=== PATIENT | female | born 1965 | race Caucasian/White ===

== ENCOUNTER → 2016-09-12 | Outpatient (CLI) | payer BC ==
[~2016-09-12] MED LIST: ASCO500T3 PO; ATEN50TA8 PO; BUTA1TAB PO; EST1 PO; MULTTAB58 PO; OMEG10007 PO; OMEP20CA59 PO; SIMV20TA2 PO; VITAMIN D PO
== END | disposition home or self-care (01) ==
LOC: C.LABSPEC 17:11
PROVIDERS: ATTEND Nurse Practitioner Family
DX: R30.0 Dysuria (principal); R35.0 Frequency of micturition

== ENCOUNTER → 2016-10-30 | Outpatient (CLI) | payer BC ==
[~2016-10-30] MED LIST changes: +BUTA50TA6 PO; +CHOLCAP5 PO; +FLUT50SP45; +NITR1CAP32 PO; +PHEN-876 PO; +PRVIN525X NEB; +VNTHFA/IN INH
--- NOTE | 2016-10-30 16:04 | MAMMOGRAPHY REPORT ---
BILATERAL DIGITAL SCREENING MAMMOGRAM TOMOSYNTHESIS WITH CAD: 10/30/2016 CLINICAL HISTORY: Routine screening. Patient has no complaints. TECHNIQUE: Breast tomosynthesis in addition to standard 2D mammography was performed. Current study was also evaluated with a Computer Aided Detection (CAD) system. COMPARISON: Comparison is made to exams dated: 10/27/2015 mammogram, 10/21/2014 mammogram, 10/16/2013 m ammogram, 10/10/2012 mammogram, 10/05/2011 mammogram, and 10/02/2010 mammogram - [facility]. BREAST COMPOSITION: There are scattered areas of fibroglandular density in both breasts. FINDINGS: The parenchymal pattern is unchanged. No developing mass, architectural distortion or clu ster of suspicious microcalcifications is seen in either breast. IMPRESSION: ACR BI-RADS CATEGORY 2: BENIGN There is no mammographic evidence of malignancy. A 1 year screening mammogram is recommended. The p atient will receive written notification of the results. Approximately 10% of breast cancers are not detected with mammography. A negative mammographic repor t should not delay biopsy if a clinically suggestive mass is present. Cat Sunshine M.D. ay/:10/30/2016 14:39:20 Admin Prog Coord: No REDD(Shilpi)(Gonzalo), [facility] letter sent: Normal 1/2 BI-RADS Code: ACR BI-RADS Category 2: Benign
== END | disposition home or self-care (01) ==
LOC: C.MAMM 08:10
PROVIDERS: ATTEND Obstetrics & Gynecology
DX: Z12.31 Encounter for screening mammogram for malignant neoplasm of breast (principal)

== ENCOUNTER → 2017-06-04 | Outpatient (CLI) | payer BC ==
[~2017-06-04] MED LIST changes: -BUTA1TAB PO; -VITAMIN D PO
--- NOTE | 2017-06-04 09:51 | DIAGNOSTIC IMAGING REPORT ---
RETROPERITONEAL COMPLETE HISTORY: 51 years-old Female URINARY SYMPTOM OR SIGN; UTI acute urinary tract infection. History of 6 mm right-sided renal angiomyolipoma COMPARISON: Renal ultrasound 04/17/2013 TECHNIQUE: Multiple real-time sonography images of the kidneys and urinary bladder were obtained assessing grayscale appearance and color flow FINDINGS: Increased echogenicity of the liver suggests fatty infiltration. The right kidney measures 10.3 x 4.7 x 5.1 cm. Echogenic lesion of the lower pole left kidney laterally is again seen measuring up to 0.7 x 0.5 x 0.4 cm which appears unchanged from comparison considering difference in measurement technique suggesting angiomyolipoma. No right-sided renal calculi or hydronephrosis. Left kidney measures 11.7 x 5.5 x 5.3 cm and is unremarkable without renal calculi, hydronephrosis or focal mass. Mild fullness of the renal pelvis and the left is likely physiologic. Bilateral ureteral jets documented. Urinary bladder appears unremarkable. IMPRESSION: 1. No renal calculi or hydronephrosis identified. 2. 7 mm echogenic cortical lesion of the right kidney appears unchanged from comparison suggesting angiomyolipoma. 3. Unremarkable sonographic appearance of the urinary bladder. 4. Fatty infiltration of the liver. The above report was generated using voice recognition software. It may contain grammatical, syntax or spelling errors. Electronically signed by: Mitch Chaing M.D. 06/04/2017 9:50 AM Dictated Date/Time: 06/04/2017 9:47 AM
== END | disposition home or self-care (01) ==
LOC: C.ULTR 08:27
PROVIDERS: ATTEND Urology
DX: N39.0 Urinary tract infection, site not specified (principal); R39.9 Unspecified symptoms and signs involving the genitourinary system

== ENCOUNTER → 2017-06-07 | Day surgery (SDC) | payer BC ==
[2017-05-30 14:23] VITALS: BMI 32.0
[2017-05-30 14:27] VITALS: BMI 32.0
--- NOTE | 2017-05-30 15:02 | PAT Medication Instructions ---
Service Date May 30, 2017. Current Home Medication List Albuterol Hfa (Ventolin Hfa), 2-4 PUFFS INH Q6H PRN for SOB/Wheezing Albuterol Sulf (Albuterol Sulfate), 1 DOSE NEB Q4 PRN for SOB/Wheezing Ascorbic Acid (Vitamin C), 1 TAB PO QPM Atenolol (Tenormin), 50 MG PO QPM Butalbital-Acetaminophen (Butalbital/Acetaminophen), 1-2 TABS PO Q4 PRN for Headache Cholecalciferol (Vitamin D3), 1 CAP PO QPM Estradiol (Estradiol), 1 TAB PO QPM Fish Oil ([place]-3), 2 CAP PO QPM Fluticasone Propionate (Nasal) (Allergy Nasal [place] 24 Ho), 2 SPRAYS NA QPM Multiple Vitamin (Multivitamin), 1 TAB PO QPM Nitrofurantoin Macrocrystals (Macrodantin), 1 CAP PO BID PRN for Bladder pain Omeprazole (Prilosec), 20 MG PO HS Phenazopyridine HCl (Pyridium), 200 MG PO TID PRN for Bladder pain Simvastatin (Zocor), 20 MG PO QPM Medication Instructions For Your Scheduled Surgery - Instructions per surgeon: Estradiol (Estradiol), 1 TAB PO QPM - Hold the following medications as of 05/31/17: Fish Oil ([place]-3), 2 CAP PO QPM - Hold the following medications the morning of surgery: Phenazopyridine HCl (Pyridium), 200 MG PO TID PRN for Bladder pain Nitrofurantoin Macrocrystals (Macrodantin), 1 CAP PO BID PRN for Bladder pain - Take the following medications the morning of surgery with a sip of water OTHERWISE NOTHING TO EAT OR DRINK AFTER MIDNIGHT: Albuterol Hfa (Ventolin Hfa), 2-4 PUFFS INH Q6H PRN for SOB/Wheezing (use if needed; BRING TO HOSPITAL) Albuterol Sulf (Albuterol Sulfate), 1 DOSE NEB Q4 PRN for SOB/Wheezing Butalbital-Acetaminophen (Butalbital/Acetaminophen), 1-2 TABS PO Q4 PRN for Headache - Take the following medications as scheduled the night before surgery: Albuterol Hfa (Ventolin Hfa), 2-4 PUFFS INH Q6H PRN for SOB/Wheezing Albuterol Sulf (Albuterol Sulfate), 1 DOSE NEB Q4 PRN for SOB/Wheezing Ascorbic Acid (Vitamin C), 1 TAB PO QPM Atenolol (Tenormin), 50 MG PO QPM Cholecalciferol (Vitamin D3), 1 CAP PO QPM Multiple Vitamin (Multivitamin), 1 TAB PO QPM Omeprazole (Prilosec), 20 MG PO HS Simvastatin (Zocor), 20 MG PO QPM Butalbital-Acetaminophen (Butalbital/Acetaminophen), 1-2 TABS PO Q4 PRN for Headache Phenazopyridine HCl (Pyridium), 200 MG PO TID PRN for Bladder pain Fluticasone Propionate (Nasal) (Allergy Nasal [place] 24 Ho), 2 SPRAYS NA QPM Nitrofurantoin Macrocrystals (Macrodantin), 1 CAP PO BID PRN for Bladder pain If you have any questions please call us at [phone] or [phone] or [phone]
[~2017-06-07] VITALS: Ht 162.6 cm; Wt 86.1 kg
[~2017-06-07] MED LIST changes: +ACET325T96 PO; +ATROPINE SULFATE 0.1 MG/ML 5ML SYR IV PRN; +CHECK SCOPOLAMINE PATCH PLACEMENT SCH; +DEXAMETHASONE SOD INJ 4 MG/ML VIAL ONE; +EpHEDrine SULFATE INJ 50 MG/ML AMP IV PRN; +FENTANYL CITRATE INJ 50 MCG/1 ML 2 ML VIAL IV PRN; +FENTANYL CITRATE INJ 50 MCG/1 ML 2 ML VIAL ONE; +FLUMAZENIL 0.1 MG/1 ML 10 ML VIAL IV PRN; +IBUP-103 PO; +IBUPROFEN 600 MG TAB PO PRN; +KETOROLAC TROMETHAMINE 30 MG/ML VIAL IV. PRN; +LABETALOL HCL IV 5 MG/ML 20ML IV PRN; +LACTATED RINGER'S 1000ML 1,000 ML IV SCH; +LIDOCAINE HCL 2% 2 ML VIAL (20MG/ML) ONE; +MIDAZOLAM HCL 1 MG/ML 2ML VIAL ONE; +NALOXONE HCL 0.4 MG/1 ML VIAL/CARP IV PRN; +ONDANSETRON INJ 2 MG/ML 2 ML VIAL IV PRN; +ONDANSETRON INJ 2 MG/ML 2 ML VIAL ONE; +OXYCODONE/ACETAMINOPHEN 5-325 TAB PO PRN; +PROMETHAZINE HCL INJ 12.5 MG in SODIUM CHLORIDE 0.9% 50ML 50 ML IV PRN; +PROMETHAZINE HCL INJ 25 MG in SODIUM CHLORIDE 0.9% 50ML 50 ML IV PRN; +PROPOFOL IV EMULSION 10 MG/ML 20 ML VIAL IV ONE; +PSEU60TA80 PO; +SCOPOLAMINE 1.5 MG TDSY TD ONE; +SCOPOLAMINE 1.5 MG TDSY TD SCH; +SODIUM CHLORIDE 0.9% 1000ML 1,000 ML IV SCH; +ZINC OTC PO
[2017-06-07 08:25] VITALS: BP 146/85; PULSE 78; TEMP 36.5; O2SAT 97; Ht 162.6 cm; Wt 86.1 kg
--- NOTE | 2017-06-07 08:57 | History & Physical Bridge Note ---
H&P Re-Evaluation Bridge Note: I have examined the patient, reviewed the History & Physical and in the interval since the performance of the History & Physical I have noted the following changes of clinical significance: No changes noted
--- NOTE | 2017-06-07 08:58 | Discharge Instructions ---
Discharge Instructions Date of Service Jun 07, 2017. Visit Reason for Visit: Vaginal Cyst Discharge Discharge Diagnosis / Problem: excision of vaginal cyst Discharge Goals Goal(s): Specific goals Activity Recommendations Activity Limitations: per Instructions/Follow-up section Anesthesia . Post Anesthesia Instructions: If you have had General Anesthesia or IV Sedation: * Do not drive today. * Resume driving when surgeon permits. * Do not make important decisions or sign legal documents today. * Call surgeon for: 1. Temperature elevations greater than 101 degrees F. 2. Uncontrollable pain. 3. Excessive bleeding. 4. Persistent nausea and vomiting. 5. Medication intolerance (nausea, vomiting or rash). * For nausea and vomiting use only clear liquids such as: tea, soda, bouillon until nausea subsides, then gradually increase diet as tolerated. * If you have any concerns or questions, call your surgeon's office. If physician is unavailable and it is an emergency, call 911 or go to the nearest emergency room. . Instructions / Follow-Up Instructions / Follow-Up ACTIVITY RECOMMENDATIONS: * Avoid tampons, douching, hot tubs, pools, and intercourse until bleeding has stopped. * May shower as usual. * No strenuous activity for 24-48 hours. After 24-48 hours, you may do anything you feel like doing (driving and sports are okay). SPECIAL CARE INSTRUCTIONS: Special Diet: * Mild nausea may occur in the immediate post-operative period. * Take clear liquids such as tea, cola or bouillon until all nausea has subsided; you may then resume your normal diet. Special Care: * Light bleeding and vaginal spotting can last from a few days to 3-4 weeks. Call your doctor if bleeding becomes heavier than the heaviest part of your period. * Check your temperature twice a day for one week. If it goes above 100.4 degrees Fahrenheit (38.0 Celsius), notify your doctor. * Call your doctor's office for an appointment for 6 weeks after your surgery. FOLLOW-UP VISIT: Call your doctor's office for an appointment for 6 weeks after your surgery. Diet Recommendations Recommended Home Diet: resume previous diet Pending Studies Studies pending at discharge: no Medical Emergencies . Who to Call and When: Medical Emergencies: If at any time you feel your situation is an emergency, please call 911 immediately. . Non-Emergent Contact Non-Emergency issues call your: Primary Care Provider . . "Provider Documentation" section prepared by Kecia Jones. . [place] Drug Monitoring Program Search Results: no issues identified
--- NOTE | 2017-06-07 10:14 | [facility] Post Operative Brief Note ---
Immediate Operative Summary Operative Date Jun 07, 2017. Pre-Operative Diagnosis Vaginal cyst Post-Operative Diagnosis Vaginal cyst Procedure(s) Performed Vaginal Cystectomy Surgeon Dr. Kecia Jones Hop Worker Surgeon(s) None Estimated Blood Loss 2mL Findings Vaginal cuff with anterior/apical midline cyst approx 1cm in all dimensions. Specimens Permanent specimens A: Vaginal cyst Complication(s) None Disposition Recovery Room / PACU
--- NOTE | 2017-06-07 10:31 | OPERATIVE REPORT ---
DATE OF OPERATION: 06/07/2017 PREOPERATIVE DIAGNOSIS: Vaginal cyst with pain. POSTOPERATIVE DIAGNOSIS: Same. PROCEDURE: Vaginal cystectomy. SURGEON: Dr. Jones. POSTMASTER: None. ESTIMATED BLOOD LOSS: 2 mL. FINDINGS: Vaginal cuff with anterior/apical midline cyst, approximately 1 cm in all dimensions. SPECIMENS: Vaginal cyst. COMPLICATIONS: None. DISPOSITION: Stable to recovery room. DESCRIPTION: Alysia is a 51-year-old female who presented to my partner, Dr. Alhaji Pereira with complaints of vaginal cuff pain. She had previously undergone a vaginal hysterectomy, but was experiencing pain with deep thrusting in intercourse and that pain was reproducible on palpation during bimanual exam of a small cyst that was identified at the vaginal cuff. I confirmed that this exam myself. Ms. Pool requested excision of the cyst. I did ask her to undergo an MRI to ensure that this cyst was not in fact pelvic organ related, such as for example a bladder diverticulum, urethral diverticulum, abdominal wall adhesions, etc. related to her prior vaginal surgery. The MRI confirmed a benign-appearing cyst which was isolated at the vaginal cuff. Therefore, she was brought to the operating room this morning for a surgical cystectomy. She was placed on the table in dorsal lithotomy position with Yellofin stirrups, prepped and draped in standard sterile fashion and a hard time-out was taken prior to proceeding. Weighted and right angle specula were introduced to the vagina to allow visualization of the vaginal cuff at which the 1 cm x 1 cm cyst was again encountered. As it had in the office, it had a bluish thin walled appearance consistent with likely a mucous cyst. Allis clamps were placed both just above and just below this cyst in an AP direction and then using an 11 blade a lenticular incision was made encompassing the cyst. Metzenbaum scissors were then used to dissect both bluntly and sharply around the cyst itself and ultimately the cyst measuring again approximately 1 x 1 cm was shelled out in its entirety and from the patient. The remaining incision bed was then closed using 3-0 Vicryl in a running locked manner with excellent hemostasis. The cyst was opened on the sterile table and as expected exuded a clear mucin like material. The cyst will be sent for permanent examination and the patient was transferred in stable condition to the recovery room after removal of all instruments. I attest to the content of the Intraoperative Record and any orders documented therein. Any exception s are noted below.
--- NOTE | 2017-06-07 11:00 | Anesthesiology Progress Note ---
Anesthesia Post Op Note Date & Time Jun 07, 2017 at 10:59 Vital Signs Pain Intensity: 3 Vital Signs Past 12 Hours Date Time Temp Pulse Resp B/P (MAP) Pulse Ox O2 Delivery O2 Flow Rate FiO2 06/07/17 10:55 36.6 75 18 143/87 95 06/07/17 10:45 75 21 130/82 97 06/07/17 10:35 76 19 166/85 100 Oxymask 10 06/07/17 10:25 77 18 164/96 100 Oxymask 10 06/07/17 10:19 36.2 99 23 147/109 100 Oxymask 10 06/07/17 08:25 36.5 78 18 146/85 (105) 97 Room Air Notes Mental Status: alert / awake / arousable, participated in evaluation Pt Amnestic to Procedure: Yes Nausea / Vomiting: adequately controlled Pain: adequately controlled Airway Patency, RR, SpO2: stable & adequate BP & HR: stable & adequate Hydration State: stable & adequate Anesthetic Complications: no major complications apparent
[2017-06-07 11:05] VITALS: BP 149/83; PULSE 75; TEMP 36.3; O2SAT 95
[2017-06-07 11:35] VITALS: BP 159/83; PULSE 74; TEMP 36.5; O2SAT 97
== END | disposition home or self-care (01) ==
LOC: C.ACU 08:09
PROVIDERS: ATTEND Obstetrics & Gynecology
DX: N89.8 Other specified noninflammatory disorders of vagina (principal); K21.9 Gastro-esophageal reflux disease without esophagitis; J45.909 Unspecified asthma, uncomplicated; N30.10 Interstitial cystitis (chronic) without hematuria; I10 Essential (primary) hypertension; E78.5 Hyperlipidemia, unspecified; E55.9 Vitamin D deficiency, unspecified; R73.9 Hyperglycemia, unspecified; Z79.899 Other long term (current) drug therapy; M79.7 Fibromyalgia; E66.9 Obesity, unspecified; Z68.32 Body mass index [BMI] 32.0-32.9, adult

== ENCOUNTER → 2017-11-01 | Outpatient (CLI) | payer OTHER ==
[~2017-11-01] MED LIST changes: +ACET-1693 PO; -ACET325T96 PO; -ATROPINE SULFATE 0.1 MG/ML 5ML SYR IV PRN; -CHECK SCOPOLAMINE PATCH PLACEMENT SCH; -DEXAMETHASONE SOD INJ 4 MG/ML VIAL ONE; -EpHEDrine SULFATE INJ 50 MG/ML AMP IV PRN; -FENTANYL CITRATE INJ 50 MCG/1 ML 2 ML VIAL IV PRN; -FENTANYL CITRATE INJ 50 MCG/1 ML 2 ML VIAL ONE; -FLUMAZENIL 0.1 MG/1 ML 10 ML VIAL IV PRN; -IBUPROFEN 600 MG TAB PO PRN; -KETOROLAC TROMETHAMINE 30 MG/ML VIAL IV. PRN; -LABETALOL HCL IV 5 MG/ML 20ML IV PRN; -LACTATED RINGER'S 1000ML 1,000 ML IV SCH; -LIDOCAINE HCL 2% 2 ML VIAL (20MG/ML) ONE; -MIDAZOLAM HCL 1 MG/ML 2ML VIAL ONE; -NALOXONE HCL 0.4 MG/1 ML VIAL/CARP IV PRN; -ONDANSETRON INJ 2 MG/ML 2 ML VIAL IV PRN; -ONDANSETRON INJ 2 MG/ML 2 ML VIAL ONE; -OXYCODONE/ACETAMINOPHEN 5-325 TAB PO PRN; -PROMETHAZINE HCL INJ 12.5 MG in SODIUM CHLORIDE 0.9% 50ML 50 ML IV PRN; -PROMETHAZINE HCL INJ 25 MG in SODIUM CHLORIDE 0.9% 50ML 50 ML IV PRN; -PROPOFOL IV EMULSION 10 MG/ML 20 ML VIAL IV ONE; -SCOPOLAMINE 1.5 MG TDSY TD ONE; -SCOPOLAMINE 1.5 MG TDSY TD SCH; -SODIUM CHLORIDE 0.9% 1000ML 1,000 ML IV SCH
== END | disposition home or self-care (01) ==
LOC: C.MAMM 08:13
PROVIDERS: ATTEND Obstetrics & Gynecology
DX: Z12.31 Encounter for screening mammogram for malignant neoplasm of breast (principal)